=== PATIENT | female | born 1950 ===

== ENCOUNTER 2023-01-17 07:14 | Inpatient (IN) | payer OTHER ==
[~2023-01-17] VITALS: Ht 160 cm; Wt 58.5 kg
[2023-01-17] MEDS ORDERED: JANUMET 50-1,01 EACH PO (07:44)
[2023-01-17] MEDS ORDERED: SYNTH PO (07:45)
[2023-01-17] MEDS ORDERED: MULTI VITAMIN1 EACH PO (07:46)
[2023-01-17] MEDS ORDERED: LIPIT PO (07:46)
[2023-01-21] MEDS ORDERED: ALENDRONATE SOD70 MG (11:47)
[2023-01-21] MEDS ORDERED: LEVOTHYROXINE50 MCG (11:47)
[2023-01-21] MEDS ORDERED: LOSARTAN-HCTZ1 EACH (11:48)
[2023-01-21] MEDS ORDERED: ATORVASTATIN CA20 MG (11:48)
[2023-01-21] MEDS ORDERED: AMLODIPINE BESYL5 MG (11:48)
[2023-01-23] MEDS ORDERED: PERCOCET 5-3251 EACH PO (16:54)
[2023-01-23] MEDS ORDERED: ELIQUIS2.5 MG PO (16:54)
[2023-01-23] MEDS ORDERED: DUI500 PO (16:54)
[2023-01-24] MEDS ORDERED: PERCOCET 5-3251 EACH PO (08:14)
[2023-01-24] MEDS ORDERED: DUI500 PO (08:14)
[2023-01-24] MEDS ORDERED: ELIQUIS2.5 MG PO (08:14)
== END 2023-01-24 15:31 | DRG 470 ==
LOC: SURH 01-21 06:44 → O/R 01-21 06:44 → SURG 01-21 07:15 → SURH 01-21 16:00 → SURG 01-21 16:30 → SURH 01-24 15:31
PROVIDERS: ADMIT Orthopaedic Surgery; ATTEND Orthopaedic Surgery
PROC: 0MNP0ZZ Release Left Knee Bursa and Ligament, Open Approach (ICD-10-PCS; 2023-01-21)
PROC: 0SRD0J9 Replacement of Left Knee Joint with Synthetic Substitute, Cemented, Open Approach (ICD-10-PCS; principal; 2023-01-21 16:30)
DX: M17.12 Unilateral primary osteoarthritis, left knee (principal); M22.12 Recurrent subluxation of patella, left knee; E11.9 Type 2 diabetes mellitus without complications; I10 Essential (primary) hypertension; Z79.4 Long term (current) use of insulin